=== PATIENT | female | born 1980 | race Two or more races ===

== ENCOUNTER 2018-09-11 07:57 | Emergency (ER) | payer OTHER ==
[~2018-09-11] VITALS: Ht 167.6 cm; Wt 95.3 kg
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
--- NOTE | 2018-09-11 08:36 | NUR ---
Patient discharged to home in stable condition. Written and verbal after care instructions given. Patient verbalizes understanding of instruction.
[2018-09-11 08:37] VITALS: BP 140/80
== END 2018-09-11 08:38 | disposition home or self-care (01) ==
LOC: ER 07:57
DX: S13.8XXA Sprain of joints and ligaments of other parts of neck, initial encounter (principal); Z98.890 Other specified postprocedural states; V49.49XA Driver injured in collision with other motor vehicles in traffic accident, initial encounter; Y93.89 Activity, other specified; Y92.413 State road as the place of occurrence of the external cause; Y99.8 Other external cause status